=== PATIENT | female | born 1965 | race American Indian/Alaskan Native ===

== ENCOUNTER 2017-04-29 10:50 | Emergency (ER) | payer SELFPAY ==
[2017-04-29 11:54] LABS: Basophils % (Auto) 0.3 % (0.0-1.8); Eosinophils % (Auto) 3.2 % (0.0-4.3); Hematocrit 35.4 % (30.3-42.9); Hemoglobin 11.1 gm/dl (10.1-14.3); Mean Corpuscular HGB Conc 31 % (30-34); Mean Corpuscular Hemoglobin 27 pg (28-32); Mean Corpuscular Volume 87 fl (79-97); Platelet Count 200 K/mm3 (140-440); Red Blood Count 4.09 M/mm3 (3.65-5.03); Red Cell Distribution Width 16.1 % (13.2-15.2); White Blood Count 4.8 K/mm3 (4.5-11.0)
[2017-04-29 12:13] LABS: Alanine Aminotransferase 16 units/L (7-56); Albumin 4.1 g/dL (3.9-5); Albumin/Globulin Ratio 1.3 %; Alkaline Phosphatase 57 units/L (35-129); Anion Gap 15 mmol/L; BUN/Creatinine Ratio 10; Blood Urea Nitrogen 7 mg/dL (7-17); Calcium 10.3 mg/dL (8.4-10.2); Carbon Dioxide 26 mmol/L (22-30); Chloride 105.2 mmol/L (98-107); Glucose 93 mg/dL (65-100); Lipase 27 units/L (13-60); Sodium 142 mmol/L (137-145); Total Protein 7.3 g/dL (6.3-8.2)
[2017-04-29 12:36] LABS: Bacteria,Urine 1+ /HPF (Negative); Bilirubin,Urine NEG (Negative); Blood,Urine NEG (Negative); Ketones,Urine NEG (Negative); Leukocyte Esterase,Urine NEG (Negative); Mucus,Urine FEW /HPF; Nitrite,Urine NEG (Negative); Protein,Urine <15 mg/dL mg/dL (Negative); Urobilinogen,Urine < 2.0 mg/dL (<2.0)
--- NOTE | 2017-04-29 16:43 | Emergency Department Report ---
ED Abdominal Pain HPI - General Chief Complaint: Urogenital-Female Stated Complaint: ABD PAIN Time Seen by Provider: 04/29/17 16:43 Source: patient, RN notes reviewed Mode of arrival: Ambulatory Limitations: No Limitations - History of Present Illness Initial Comments: This is a 51-year-old female who is previously unknown to this provider, she currently does not have a primary care doctor, reports a history of abdominoplasty in the distant past. Patient presents to the ER with suprapubic and left lower quadrant pain for one week. The pain is associated with simultaneous lower back pain. No nausea, vomiting, diarrhea, fevers, chills, chest pain, short of breath, irritative or obstructive urinary symptoms. Patient reports that the pain is sharp, increases with palpation, twisting, lifting of her left lower extremity, and decreases with rest and when she stays still. Patient was also given 1 mg of hydromorphone after my initial history and physical, and she reports that this also decreased her pain. MD Complaint: abdominal pain -: Gradual Location: LLQ, suprapubic Radiation: back (patient reports simultaneous lower back pain as well as left lower quadrant and suprapubic abdominal pain) Quality: aching Consistency: intermittent Improves With: medication, rest Worsens With: movement Associated Symptoms: anorexia. denies: nausea, vomiting, diarrhea, fever, chills, constipation, dysuria, hematemesis, melena, hematuria, syncope - Related Data Previous Rx's Medication Instructions Recorded Last Taken Type Acetaminophen/Codeine [Tylenol 1 tab PO Q6H PRN #15 tab 04/29/17 Unknown Rx /Codeine # 3 tab] Ibuprofen [Motrin] 600 mg PO Q8H PRN #30 tablet 04/29/17 Unknown Rx Ondansetron [Zofran Odt] 4 mg PO Q8HR PRN #20 tab.rapdis 04/29/17 Unknown Rx Promethazine [Phenergan SUPPOS] 50 mg [place] Q6H PRN #20 supp.rect 04/29/17 Unknown Rx Allergies Allergy/AdvReac Type Severity Reaction Status Date / Time No Known Allergies Allergy Unverified 04/29/17 11:01 ED Review of Systems ROS: Stated complaint: ABD PAIN Other details as noted in HPI Constitutional: denies: fever Eyes: denies: vision change ENT: denies: epistaxis Respiratory: denies: cough Cardiovascular: denies: chest pain Gastrointestinal: abdominal pain Genitourinary: denies: dysuria Musculoskeletal: denies: back pain Skin: denies: lesions Neurological: weakness. denies: headache Psychiatric: anxiety ED Past Medical Hx - Past Medical History Previous Medical History?: No Additional medical history: vaginal delivery - Surgical History Past Surgical History?: Yes Additional Surgical History: tummy tuck, - Social History Smoking Status: Former Smoker Substance Use Type: None - Medications Home Medications: Home Medications Medication Instructions Recorded Confirmed Last Taken Type Acetaminophen/Codeine [Tylenol 1 tab PO Q6H PRN #15 tab 04/29/17 Unknown Rx /Codeine # 3 tab] Ibuprofen [Motrin] 600 mg PO Q8H PRN #30 tablet 04/29/17 Unknown Rx Ondansetron [Zofran Odt] 4 mg PO Q8HR PRN #20 tab.rapdis 04/29/17 Unknown Rx Promethazine [Phenergan SUPPOS] 50 mg WV Q6H PRN #20 supp.rect 04/29/17 Unknown Rx ED Physical Exam - General Limitations: No Limitations General appearance: alert, in no apparent distress - Head Head exam: Present: atraumatic, normocephalic - Eye Eye exam: Present: normal appearance, EOMI. Absent: nystagmus - ENT ENT exam: Present: normal exam, normal orophraynx, mucous membranes moist, normal external ear exam - Neck Neck exam: Present: normal inspection, full ROM. Absent: tenderness, meningismus - Respiratory Respiratory exam: Present: normal lung sounds bilaterally. Absent: respiratory distress, wheezes, rales, rhonchi, stridor, chest wall tenderness, accessory muscle use, decreased breath sounds, prolonged expiratory - Cardiovascular Cardiovascular Exam: Present: regular rate, normal rhythm, normal heart sounds. Absent: bradycardia, tachycardia, irregular rhythm, systolic murmur, diastolic murmur, rubs, gallop - GI/Abdominal GI/Abdominal exam: Present: soft, tenderness, normal bowel sounds, other (there is suprapubic and left lower quadrant tenderness. There is positive voluntary guarding). Absent: distended, rebound, rigid, pulsatile mass - External exam: Present: normal external exam (escorted by nurse Mary garcia) - Extremities Exam Extremities exam: Present: normal inspection, full ROM, normal capillary refill. Absent: pedal edema, joint swelling, calf tenderness - Back Exam Back exam: Present: normal inspection, full ROM. Absent: tenderness, CVA tenderness (R), CVA tenderness (L), muscle spasm, paraspinal tenderness, vertebral tenderness - Neurological Exam Neurological exam: Present: alert, oriented X3, other (Extraocular movements intact. Tongue midline. No facial droop. Facial sensation intact to light touch in the V1, V2, V3 distribution bilaterally. 5 and 5 strength in 4 extremities.. Sensation is intact to light touch in 4 extremities.). Absent: motor sensory deficit - Psychiatric Psychiatric exam: Present: normal affect, normal mood - Skin Skin exam: Present: warm, dry, intact, normal color. Absent: rash ED Course Vital Signs 04/29/17 04/29/17 04/29/17 11:01 14:24 18:25 Temperature 98.3 F 98.1 F 98 F Pulse Rate 65 62 54 L Respiratory 16 18 17 Rate Blood Pressure 131/81 Blood Pressure 139/76 115/64 [Left] O2 Sat by Pulse 100 97 97 Oximetry - Reevaluation(s) Reevaluation #1: 04/29/17 18:00 Differential diagnosis: AAA, perforated viscus, psoas abscess, bony fracture, urinary tract infection, renal colic, rectus sheath hematoma Assessment and plan: 51-year-old female with left lower quadrant abdominal pain , very tender, no fever or leukocytosis, otherwise well-appearing. She has been medicated appropriately, IV fluids infusing, CT scan of abdomen and pelvis pending. Reevaluation #2: 04/29/17 18:49 CT scan of the abdomen and pelvis suggests nonspecific/uncomplicated epiploic appendicitis. Patient reexamined, belly soft on repeat exam, feels much improved with pain medication, and she is tolerating liquid feeds. The patient is counseled regarding management, she can follow up with outpatient general surgery or primary care, return precautions are reviewed. Patient observed in the ER for over 8 hours, therefore I would consider her suitable for a trial of outpatient management. ED Medical Decision Making - Lab Data Result diagrams: 04/29/17 11:19 04/29/17 11:19 Vital Signs 04/29/17 04/29/17 11:01 14:24 Temperature 98.3 F 98.1 F Pulse Rate 65 62 Respiratory 16 18 Rate Blood Pressure 131/81 Blood Pressure 139/76 [Left] O2 Sat by Pulse 100 97 Oximetry Lab Results 04/29/17 04/29/17 04/29/17 Range/Units 11:19 11:19 12:12 WBC 4.8 (4.5-11.0) K/mm3 RBC 4.09 (3.65-5.03) M/mm3 Hgb 11.1 (10.1-14.3) gm/dl Hct 35.4 (30.3-42.9) % MCV 87 (79-97) fl MCH 27 L (28-32) pg MCHC 31 (30-34) % RDW 16.1 H (13.2-15.2) % Plt Count 200 (140-440) K/mm3 Lymph % (Auto) 52.4 H (13.4-35.0) % Motley % (Auto) 7.3 (0.0-7.3) % Eos % (Auto) 3.2 (0.0-4.3) % Baso % (Auto) 0.3 (0.0-1.8) % Lymph # 2.5 (1.2-5.4) K/mm3 Motley # 0.3 (0.0-0.8) K/mm3 Eos # 0.2 (0.0-0.4) K/mm3 Baso # 0.0 (0.0-0.1) K/mm3 Seg Neutrophils % 36.8 L (40.0-70.0) % Seg Neutrophils # 1.8 (1.8-7.7) K/mm3 Sodium 142 (137-145) mmol/L Potassium 4.0 (3.6-5.0) mmol/L Chloride 105.2 (98-107) mmol/L Carbon Dioxide 26 (22-30) mmol/L Anion Gap 15 mmol/L BUN 7 (7-17) mg/dL Creatinine 0.7 (0.7-1.2) mg/dL Estimated GFR > 60 ml/min BUN/Creatinine Ratio 10 % Glucose 93 (65-100) mg/dL Calcium 10.3 H (8.4-10.2) mg/dL Total Bilirubin 0.30 (0.1-1.2) mg/dL AST 19 (5-40) units/L ALT 16 (7-56) units/L Alkaline Phosphatase 57 (35-129) units/L Total Protein 7.3 (6.3-8.2) g/dL Albumin 4.1 (3.9-5) g/dL Albumin/Globulin Ratio 1.3 % Lipase 27 (13-60) units/L Urine Color Yellow (Yellow) Urine Turbidity Clear (Clear) Urine pH 7.0 (5.0-7.0) Ur Specific [place] 1.012 (1.003-1.030) Urine Protein <15 mg/dl (Negative) mg/dL Urine Glucose (UA) Neg (Negative) mg/dL Urine Ketones Neg (Negative) mg/dL Urine Blood Neg (Negative) Urine Nitrite Neg (Negative) Urine Bilirubin Neg (Negative) Urine Urobilinogen < 2.0 (<2.0) mg/dL Ur Leukocyte Esterase Neg (Negative) Urine WBC (Auto) 2.0 (0.0-6.0) /HPF Urine RBC (Auto) 3.0 (0.0-6.0) /HPF U Epithel Cells (Auto) 21.0 H (0-13.0) /HPF Urine Bacteria (Auto) 1+ (Negative) /HPF Urine Mucus Few /HPF - Radiology Data Radiology results: pending, report reviewed, image reviewed CT scan suggests epiploic appendagitititis Critical care attestation.: If time is entered above; I have spent that time in minutes in the direct care of this critically ill patient, excluding procedure time. ED Disposition Clinical Impression: Epiploic appendagitis Disposition: TO HOME OR SELFCARE Is pt being admited?: No Does the pt Need Aspirin: No Condition: Stable Instructions: Acute Abdominal Pain (ED) Additional Instructions: CT scan of the abdomen and pelvis suggested inflammation of the fatty tissue surrounding the distal large intestine, suggestive of epiploic appendigitis. This is typically a self-limiting and self resolving condition, does not require any specific antibiotic therapy, or surgical intervention. Take the pain medication, nausea medication as directed. Follow up with a primary care doctor or general surgeon within the next 2-3 days for repeat abdominal examination. Alternatively, return to the emergency room for repeat abdominal examination, or follow-up at an urgent care center for a repeat abdominal examination. Patient should consume diet as tolerated, patient to return to the ER right away with new pain, worsening pain, migration of pain, fevers, chills, lethargy, irritability, projectile vomiting, change in mental status, inability to tolerate liquid feeds. Dr. Petersen is a local primary care doctor. Doctor Bryan is a local general surgeon. Prescriptions: Acetaminophen/Codeine [Tylenol /Codeine # 3 tab] 1 tab PO Q6H PRN #15 tab PRN Reason: Pain Ibuprofen [Motrin] 600 mg PO Q8H PRN #30 tablet PRN Reason: Pain Ondansetron [Zofran Odt] 4 mg PO Q8HR PRN #20 tab.rapdis PRN Reason: Nausea Promethazine [Phenergan SUPPOS] 50 mg [place] Q6H PRN #20 supp.rect PRN Reason: Nausea Referrals: PRIMARY CARE, [Primary Care Provider] - 3-5 Days KAROLINE PETERSEN MD [Staff Physician] - 3-5 Days GELA MANN DO [Staff Physician] - 3-5 Days
[2017-04-29] MEDS ORDERED: NACL 0.9% 1000 ML 1,000 ML IV ONE (17:04)
[2017-04-29] MEDS ORDERED: DILAUDID IV ONE (17:05)
--- NOTE | 2017-04-29 18:21 | Cat Scan Report ---
FINAL REPORT EXAM: CT ABDOMEN PELVIS W CON HISTORY: llq and suprapubic abd pain TECHNIQUE: Serial axial images through the abdomen and pelvis with coronal and sagittal reconstruction. Intravenous administration of 100 milliliters Omnipaque 300 PRIORS: None. FINDINGS: There is mild atelectasis. No pleural effusion is seen. No focal hepatic lesion is identified. Gallbladder appears normal. Pancreas appears normal. Spleen appears normal. Adrenal glands appear normal. Right kidney appears normal. There are hypodense foci in the left kidney which are too small to definitely characterize. Aorta is normal in caliber. Bladder is decompressed. Uterus is lobulated, consistent with presence of fibroids. Coarse calcification is seen associated with this consistent with calcified fibroids. No free fluid. There is a lobule of fatty tissue anterior to the distal descending colon that measures approximately 2.6 centimeters in length with subtle inflammatory changes in the adjacent fat. This can be seen for example series 3, image 139. Appendix appears normal. Soft tissue nodules are seen in the subcutaneous fat in the gluteal regions which may represent injection granulomata. No acute osseous abnormality is identified. There appears to be an hemangioma in the T11 vertebral body. IMPRESSION: 1. 2.6 centimeter lobule of fatty tissue with adjacent in inflammation is noted anterior to the distal descending colon. This is consistent with epiploic appendagitis. 2. Multiple uterine fibroids are noted, some of which are calcified. 3. Low-density foci are seen in the left kidney which are too small to definitely characterize.
[2017-04-29 18:30] VITALS: BP 115/64
[2017-04-29] MEDS ORDERED: TORADOL IV ONE (18:32)
== END 2017-04-29 19:34 | disposition home or self-care (01) ==
LOC: ED 10:50
DX: K63.89 Other specified diseases of intestine (principal); Z87.891 Personal history of nicotine dependence; Z98.890 Other specified postprocedural states
CPT/HCPCS: 36415; 74177; 80053; 81001; 82550; 83690; 85025; 96361; 96374; 96375; 99284; J1170; J1885; J7030